=== PATIENT | female | born 1940 | race Caucasian/White ===

== ENCOUNTER 2018-10-26 09:24 | Observation (INO) ==
[2018-10-26] MEDS ORDERED: *HR* OxyCODONE Immed Rel 5 MG TABLET PO STA (09:36)
[2018-10-26] MEDS ORDERED: 0.9 % Sodium Chloride 500 ML IVC ONE (09:36)
[2018-10-26] MEDS ORDERED: *HR* FentaNYL (PF) 100 MCG/2 ML VIAL IVP ONE (09:36)
--- NOTE | 2018-10-26 09:39 | Emergency Department Note ---
Disposition Clinical Impression: Frequent falls, At risk for inadequate pain control Lumbar transverse process fracture Qualifiers: Encounter type: initial encounter Fracture type: closed Qualified Code(s): S32.009A - Unspecified fracture of unspecified lumbar vertebra, initial encounter for closed fracture Disposition: Admitted As Inpatient Condition: Good General Adult HPI - General Chief complaint: ED Fall Stated complaint: fall Time Seen by Provider: 10/26/18 09:27 Source: patient Mode of arrival: ambulatory Limitations: no limitations Nursing Notes Reviewed: Yes Vital Signs Reviewed: Yes - History of Present Illness HPI Narrative: Patient presents to emergency department today after fall. She was on her walker when she lost her balance and fell backwards onto her butt. She is complaining of left pelvis to the lower back as well as the lumbar and thoracic spine. She was evaluated by me last week for muscle spasms had significant relief. Family states that she has had another fall yesterday which she did not seem to have significant pain from. Patient does have a history of osteoporosis and has required kyphoplasty's in the past. At this time it is concerning whether she is safe at home given her frequent falls. Blood work CT scan imaging will be performed. Pain Scale: 10 - Related Data Home Medications Medication Instructions Recorded Confirmed RX: Calcium Carbonate [Calcium] 500 mg PO DAILY 02/18/17 10/26/18 RX: Cholecalciferol (D-3) [Vitamin 1,000 unit PO DAILY 02/18/17 10/26/18 D] RX: Furosemide [Lasix] 20 mg PO DAILY 02/18/17 10/26/18 RX: LORazepam [Ativan] 0.5 mg PO TID PRN 02/18/17 10/26/18 RX: Levothyroxine [Synthroid] 100 mcg PO DAILY 02/18/17 10/26/18 RX: Lidocaine Patch [Lidoderm 5% 1 each TP DAILY 02/18/17 10/26/18 patch] RX: Lisinopril/Hydrochlorothiazide 1 tab PO DAILY 02/18/17 10/26/18 [Zestoretic 20-12.5 mg Tablet] RX: Montelukast [Singulair] 10 mg PO DAILY 02/18/17 10/26/18 RX: Multivitamin [Multi-Day 1 tab PO DAILY 02/18/17 10/26/18 Vitamins] RX: OxyCODONE Immed Rel 10 mg PO Q6H PRN 02/18/17 10/26/18 [Roxicodone 10 MG] RX: Simvastatin [Zocor] 40 mg PO HS 02/18/17 10/26/18 RX: Alendronate Sodium 70 mg PO QWEEK 10/26/18 10/26/18 Previous Rx's Medication Instructions Recorded Orphenadrine [Norflex] 100 mg PO Q12HR PRN #20 tablet.er 10/20/18 Allergies Allergy/AdvReac Type Severity Reaction Status Date / Time cephalexin [From Keflet] Allergy Hives Verified 06/11/18 13:24 All systems ED: reviewed and negative except as stated. Review of Systems: As Per HPI Constitutional: Reports: weakness (generalized). Denies: fever, chills ENT ED: Denies: congestion Cardiovascular: Denies: chest pain Respiratory: Denies: cough, dyspnea Gastrointestinal: Denies: abdominal pain, nausea Genitourinary: Denies: urgency, dysuria Musculoskeletal: Reports: back pain, arthralgia (left hip pain) Integumentary: Denies: rash, abrasion Neurological: Denies: headache Endocrine: Reports: fatigue Past Medical History - Past Medical History Medical history: Reports: hyperlipidemia, hypertension, osteoporosis, other Surgical history: Reports: appendectomy, cholecystectomy, orthopedic, other (Ky phoplasty 2009; Kyphoplasty T9 on 02/18/2017) Psychiatric history: Reports: no psych history - Social History Smoking Status: Former smoker Smokeless Tobacco Status: No Alcohol use: Reports: none Drug use: Reports: none Physical Exam General: Mild distress secondary to pain Head: Normocephalic Atraumatic Eyes: PERRL, EOMI ENT: Airway patent, no stridor Neck: supple Chest: Lungs clear to auscultation bilateral Cardiac: Regular rhythm Abdomen: soft, nontender, nondistended; no guarding, rebound, or tenderness to percussion Musculoskeletal: Tenderness to palpation throughout the lower thoracic as well as lumbar spine. Tenderness at the left hip closer to the SI joint. Skin: No rash, normal skin tone Neuro: Alert and Oriented to person, place, and time; No focal deficit, CN 2-12 symmetric and intact. 5 out of 5 strength the upper lower extremities with sensation intact generalized weakness throughout but is able to lift legs off the bed. - General General appearance: alert Course - Reevaluation(s) Reevaluation #1: Patient unable to inability to go to the bathroom. Patient will require Benoit placement and admission for pain control and difficulty with ambulation given the transverse process fractures. I did discuss case with Dr. Ansari, orthopedic spine. No significant recommendations. If patient does have difficulty she may require a brace. Pain control and supportive measures. - Consultations Consultation #1: Discussed with hospitalist. Requests official orthopedic spine consult. I did go ahead and place this in the computer. Patient be admitted for pain control, increasing falls, transverse process fractures. Vital Signs Temperature 98.5 F 10/26/18 09:29 Pulse Rate 84 10/26/18 09:29 Respiratory Rate 17 10/26/18 09:29 Blood Pressure 141/61 10/26/18 09:29 O2 Sat by Pulse Oximetry 96 10/26/18 09:29 Temperature 98.6 F 10/26/18 15:27 Pulse Rate 75 10/26/18 15:27 Respiratory Rate 16 10/26/18 15:27 Blood Pressure 141/73 10/26/18 15:27 O2 Sat by Pulse Oximetry 94 10/26/18 15:27 Oxygen Delivery Oxygen Delivery Room Air Medical Decision Making - Medical Records Medical records reviewed: Yes I reviewed the patient's medical records. - Lab Data Lab results reviewed: Yes I reviewed the patient's lab results. Result diagrams: 10/26/18 09:38 10/26/18 09:38 Lab Results 10/26/18 10/26/18 10/26/18 Range/Units 09:38 09:38 11:50 WBC 12.0 H (4.3-11.1) K/mcL RBC 4.54 (3.82-4.97) M/mcL Hgb 14.3 (11.5-15.4) g/dL Hct 43.5 (35.3-44.9) % MCV 95.8 (83.0-100.0) fL MCH 31.5 (28.0-33.3) pg MCHC 32.9 (31.6-35.5) g/dL RDW 12.7 (11.5-14.5) % Plt Count 358 (140-400) K/mcL MPV 9.4 (9.4-12.4) fL Immature Gran % 0.3 (0-4) % Seg Neutrophils % 87.5 % Lymphocytes % 6.1 % Monocytes % 5.4 % Eosinophils % 0.4 % Basophils % 0.3 % Neutrophils # 10.5 H (1.6-8.9) K/mcL Lymphocytes # 0.7 (0.6-4.6) K/mcL Monocytes # 0.7 (0.0-1.3) K/mcL Eosinophils # 0.1 (0.0-0.6) K/mcL Basophils # 0.0 (0.0-0.2) K/mcL Sodium 135 L (136-145) mEq/L Potassium 3.6 (3.5-5.1) mEq/L Chloride 98 (98-107) mEq/L Carbon Dioxide 26 (23-29) mEq/L BUN 7 L (8-23) mg/dL Creatinine 0.58 L (0.60-1.20) mg/dL Est GFR ( Amer) > 60 (> 60) Est GFR (Non-Af Amer) > 60 (> 60) BUN/Creatinine Ratio 12 (6-26) Glucose 118 H (70-105) mg/dL Calculated Osmolality 279 L (280-300) Calcium 9.4 (8.6-10.3) mg/dL Total Bilirubin 0.7 (0.3-1.0) mg/dL AST 23 (13-39) Units/L ALT 15 (7-52) Units/L Alkaline Phosphatase 62 (34-104) Units/L Creatine Kinase 218 (30-223) Units/L Troponin I < 0.03 (< 0.04) ng/mL Serum Total Protein 6.8 (6.4-8.9) g/dL Albumin 4.1 (3.5-5.7) g/dL Globulin 2.7 (2.4-3.5) g/dL Albumin/Globulin Ratio 1.5 (1.1-2.2) Urine Color Yellow (Yellow) Urine Clarity Clear (Clear) Urine pH 7.0 (5.0-8.0) pH Units Ur Specific [place] 1.012 (1.010-1.025) Urine Protein Negative (Neg-Trace) mg/dL Urine Glucose (UA) Normal (Normal) mg/dL Urine Ketones 40 H (Negative) mg/dL Urine Blood Large H (Negative) Urine Nitrite Negative (Negative) Urine Bilirubin Negative (Negative) Urine Urobilinogen Normal (Normal) mg/dL Ur Leukocyte Esterase Negative (Negative) Urine Microscopic RBC 5-15 H (0-3) per hpf Urine Microscopic WBC 0-3 (0-3) per hpf Ur Squamous Epith Cells None Seen (None-Few) per lpf Urine Bacteria None Seen (None-Few) per hpf Hyaline Casts None Seen (None-Few) per lpf Ur Culture Indicated? NO (NO) - Radiology Data Radiology results reviewed: Yes I reviewed the patient's radiology results.
[2018-10-26 10:01] LABS: Basophils % 0.3 %; Eosinophils # 0.1 K/mcL (0.0-0.6); Eosinophils % 0.4 %; Hematocrit 43.5 % (35.3-44.9); Hemoglobin 14.3 g/dL (11.5-15.4); Immature Granulocytes % 0.3 % (0-4); Lymphocytes # 0.7 K/mcL (0.6-4.6); Lymphocytes % 6.1 %; Mean Corpuscular HGB Conc 32.9 g/dL (31.6-35.5); Mean Corpuscular Hemoglobin 31.5 pg (28.0-33.3); Mean Corpuscular Volume 95.8 fL (83.0-100.0); Mean Platelet Volume 9.4 fL (9.4-12.4); Monocytes # 0.7 K/mcL (0.0-1.3); Monocytes % 5.4 %; Neutrophils # 10.5 K/mcL (1.6-8.9); Platelet Count 358 K/mcL (140-400); Red Blood Count 4.54 M/mcL (3.82-4.97); Red Cell Distribution Width 12.7 % (11.5-14.5); Segmented Neutrophils % 87.5 %
[2018-10-26 10:21] LABS: Troponin I < 0.03 ng/mL (< 0.04)
[2018-10-26 10:24] LABS: Alanine Aminotransferase 15 Units/L (7-52); Albumin 4.1 g/dL (3.5-5.7); Albumin/Globulin Ratio 1.5 (1.1-2.2); Alkaline Phosphatase 62 Units/L (34-104); Aspartate Amino Transferase 23 Units/L (13-39); BUN/Creatinine Ratio 12 (6-26); Bilirubin,Total 0.7 mg/dL (0.3-1.0); Blood Urea Nitrogen 7 mg/dL (8-23); Calcium 9.4 mg/dL (8.6-10.3); Carbon Dioxide 26 mEq/L (23-29); Chloride 98 mEq/L (98-107); Creatine Kinase 218 Units/L (30-223); Globulin 2.7 g/dL (2.4-3.5); Glucose 118 mg/dL (70-105); Osmolality,Calculated 279 (280-300); Potassium 3.6 mEq/L (3.5-5.1); Sodium 135 mEq/L (136-145); Total Protein 6.8 g/dL (6.4-8.9); eGFR For Non-African Americans > 60 (> 60)
[2018-10-26 12:09] LABS: Bilirubin,Urine Negative (Negative); Blood,Urine Large (Negative); Clarity,Urine Clear (Clear); Color,Urine Yellow (Yellow); Glucose,Urine (UA) Normal (Normal); Ketones,Urine 40 mg/dL (Negative); Leukocyte Esterase,Urine Negative (Negative); Nitrite,Urine Negative (Negative); Protein,Urine Negative (Neg-Trace); Specific Gravity,Urine 1.012 (1.010-1.025); Urobilinogen,Urine Normal (Normal)
[2018-10-26 12:13] LABS: Bacteria,Urine None Seen per hpf (None-Few); Hyaline Casts,Urine None Seen per lpf (None-Few); Squamous Epithelial Cell,Urine None Seen per lpf (None-Few); WBC,Urine 0-3 per hpf (0-3)
[2018-10-26] MEDS ORDERED: *HR* OxyCODONE Immed Rel 5 MG TABLET PO PRN ×2 (14:11→16:18)
[2018-10-26] MEDS ORDERED: *HR* LORazepam 0.5 MG TABLET PO PRN (14:11)
[2018-10-26] MEDS ORDERED: Naloxone 0.4 MG/ML INJ IVP PRN (14:14)
--- NOTE | 2018-10-26 15:17 | Internal Med History&Physical ---
Date of Encounter: 10/26/18 Time of Encounter: 15:16 Internal Medicine - H&P: HPI Chief complaint: Fall Admitted From: Home Plans for Post Hospital Care: Transfer Inp Rehab Fac History of present illness: Ms. Dyer is a 78 year old female with medical history of hypothyroidism, osteoporosis, hypertension and asthma. History of recurrent falls with prior kyphoplasty with presented to this facility following a mechanical fall. Patient reports having feeling wobbly on her feet early this morning around [address] to the bathroom, she subsequently fell and on her hip and back, and remained on the floor until her daughter came in and called the squad 3.5 to 4 hrs later. She denies any chest pain or palpitations or dizziness preceding the fall. She has no fever or chills, no cough, SOB, nausea, vomiting, confusion. She reports similar fall sometime last week, after which she presented to the ER and was treated for muscle spasm. Due to the intensity of the pain, she has been unable to pass urine, she had a Benoit catheter placed in the ER with 800cc of urine output. She denies focal weakness, speech deficits, or facial paralysis, but reports she has been having progressive weakness of her legs and arms prior to and preceding her fall. She is on multiple sedating medications including Norflex, Oxycodone, Lorazepam and also has Osteopenia with hx of multipel falls Work up in ER showed mild leukocytosis , Chem with mild hyponatremia, LFT unremarkable, Trops negative, UA is clean Lumbar CT showed Acute left L1, L2 and L3 transverse process fractures with mild displacement, generalized osteopenia with several vertebral bodies demonstrating decrease height as detailed above but showing no change from prior MRI [id number]. T10 and T11 vertebral body cement augmentation noted. No acute fracture of the cervical or thoracic spine She will be placed on observation for pain control. Spine surgery has been consulted by ER team Past Med Surg Social Fam HX - Past Medical History Medical history: hyperlipidemia, hypertension, osteoporosis, other Additional medical history: anemia. hypothyroidism. vertebral compression fracture. osteopenia Psychiatric history: no psych history - Past Surgical History Surgical History: appendectomy, cholecystectomy, orthopedic, other (Kyphoplasty 2009; Kyphoplasty T9 on 02/18/2017) Additional surgical history: kyphoplasty x2 - Social History Smoking Status: Former smoker Smokeless Tobacco Status: No Alcohol use: none Drug use: none - Family History Father Adopted: No Living Status: Hx Family Cancer: Yes Mother Living Status: Hx Family Neurologic Disorders: Yes (dementia) Internal Medicine - H&P: Meds Calcium Carbonate [Calcium] 500 mg PO DAILY 02/18/17 [History] Cholecalciferol (D-3) [Vitamin D] 1,000 unit PO DAILY 02/18/17 [History] Furosemide [Lasix] 20 mg PO DAILY 02/18/17 [History] LORazepam [Ativan] 0.5 mg PO TID PRN 02/18/17 [History] Levothyroxine [Synthroid] 100 mcg PO DAILY 02/18/17 [History] Lidocaine Patch [Lidoderm 5% patch] 1 each TP DAILY 02/18/17 [History] Lisinopril/Hydrochlorothiazide [Zestoretic 20-12.5 mg Tablet] 1 tab PO DAILY 02/18/17 [History] Montelukast [Singulair] 10 mg PO DAILY 02/18/17 [History] Multivitamin [Multi-Day Vitamins] 1 tab PO DAILY 02/18/17 [History] OxyCODONE Immed Rel [Roxicodone 10 MG] 10 mg PO Q6H PRN 02/18/17 [History] Simvastatin [Zocor] 40 mg PO HS 02/18/17 [History] Orphenadrine [Norflex] 100 mg PO Q12HR PRN #20 tablet.er 10/20/18 [Rx] Alendronate Sodium 70 mg PO QWEEK 10/26/18 [History] Allergy/AdvReac Type Severity Reaction Status Date / Time cephalexin [From [facility]] Allergy Hives Verified 06/11/18 13:24 All Systems PM: A 10-system review of systems was performed and is negative for pertinent fi ndings except as documented above in the HPI. - Constitutional Constitutional: as per HPI - EENT Eyes: as per HPI Ears: as per HPI Nose, mouth and throat: as per HPI - Cardiovascular Cardiovascular ROS IM: as per HPI - Respiratory Respiratory: as per HPI - Gastrointestinal Gastrointestinal: as per HPI - Genitourinary Genitourinary: as per HPI - Musculoskeletal Musculoskeletal ROS IM: as per HPI - Integumentary Integumentary IM: as per HPI - Neurological Neurological ROS: as per HPI - Hematologic/Lymphatic Hematologic/Lymphatic: as per HPI - Constitutional Vitals: Temp Pulse Resp BP Pulse Ox 98.5 F 84 17 125/65 96 10/26/18 09:29 10/26/18 09:29 10/26/18 14:27 10/26/18 14:27 10/26/18 09:29 Exam: VSS Gen: In moderate painful distress, flushed HEENT: Moist oral mucosa, not pale, not cyanotic Chest: CTAB Heart: S1, S2, systolic murmur, no gallops/rubs Abdomen: Soft, not tender, no palpably enlarged organs Extremities: No edema, mild global upper and lower extremity weakness, power 4/5 . : Benoit with clear urine neuro: AAOX3, no focal deficits. Speech is normal, no facial paralysis Internal Med - H&P Results - Labs CBC & Chem 7: 10/26/18 09:38 10/26/18 09:38 Labs: Short CBC 10/26/18 Range/Units 09:38 WBC 12.0 H (4.3-11.1) K/mcL Hgb 14.3 (11.5-15.4) g/dL Hct 43.5 (35.3-44.9) % Plt Count 358 (140-400) K/mcL Neutrophils # 10.5 H (1.6-8.9) K/mcL BMP 10/26/18 09:38 Sodium 135 L Potassium 3.6 Chloride 98 Carbon Dioxide 26 BUN 7 L Creatinine 0.58 L Glucose 118 H Calcium 9.4 Cardiac Enzymes 10/26/18 Range/Units 09:38 Troponin I < 0.03 (< 0.04) ng/mL Liver Function 10/26/18 Range/Units 09:38 Total Bilirubin 0.7 (0.3-1.0) mg/dL AST 23 (13-39) Units/L ALT 15 (7-52) Units/L Alkaline Phosphatase 62 (34-104) Units/L Albumin 4.1 (3.5-5.7) g/dL Urine 10/26/18 Range/Units 11:50 Urine Color Yellow (Yellow) Urine Clarity Clear (Clear) Urine pH 7.0 (5.0-8.0) pH Units Ur Specific [place] 1.012 (1.010-1.025) Urine Protein Negative (Neg-Trace) mg/dL Urine Glucose (UA) Normal (Normal) mg/dL - Impressions ITS Impressions Cervical Spine CT 10/26/18 09:34 IMPRESSION: 1. No evidence for acute fracture of the cervical or thoracic spine. 2. Acute left L1, L2 and L3 transverse process fractures with mild displacement. 3. Generalized osteopenia with several vertebral bodies demonstrating decrease height as detailed above but showing no change from prior MRI of 2017. T10 and T11 vertebral body cement augmentation noted. D/ / Gustavo Galeano MD / Gustavo Galeano MD Interpreting Provider: Gustavo Galeano MD Head CT 10/26/18 09:34 IMPRESSION: No acute intracranial abnormality. Mild chronic small vessel ischemic changes. D/ / 10/26/2018 11:24:15 Kacy Gaines MD / [email or web address] Interpreting Provider: Kacy Gaines MD Lumbar Spine CT 10/26/18 09:34 IMPRESSION: 1. No evidence for acute fracture of the cervical or thoracic spine. 2. Acute left L1, L2 and L3 transverse process fractures with mild displacement. 3. Generalized osteopenia with several vertebral bodies demonstrating decrease height as detailed above but showing no change from prior MRI of 2017. T10 and T11 vertebral body cement augmentation noted. D/ / Gustavo Galeano MD / Gustavo Galeano MD Interpreting Provider: Gustavo Galeano MD Pelvis CT 10/26/18 09:34 IMPRESSION: No acute abnormalities. If there is persistent clinical concern for fracture or difficulty weight-bearing consider MRI evaluation. Mild degenerative changes to both hips and both SI joints. Diffuse bone demineralization. Colonic diverticulosis. Partially imaged ventral abdominal wall hernia containing both fat and small bowel loops. No findings for incarceration or strangulation. D/ / 10/26/2018 11:29:33 Yoseph Sabillon MD / mahesh Interpreting Provider: Yoseph Sabillon MD Thoracic Spine CT 10/26/18 09:34 IMPRESSION: 1. No evidence for acute fracture of the cervical or thoracic spine. 2. Acute left L1, L2 and L3 transverse process fractures with mild displacement. 3. Generalized osteopenia with several vertebral bodies demonstrating decrease height as detailed above but showing no change from prior MRI of 2017. T10 and T11 vertebral body cement augmentation noted. D/ / Gustavo Galeano MD / Gustavo Galeano MD Interpreting Provider: Gustavo Galeano MD - Assessment and plan (1) Hypertension Current Visit: Yes Status: Chronic Assessment and plan: continue home meds Qualifiers: Hypertension type: essential hypertension Qualified Code(s): I10 - Es sential (primary) hypertension (2) Asthma Current Visit: Yes Status: Chronic Assessment and plan: not in exacerbation continue home meds Qualifiers: Asthma severity: mild Asthma persistence: unspecified Asthma complication type: uncomplicated Qualified Code(s): J45.909 - Unspecified asthma, uncomplicated (3) Frequent falls Current Visit: Yes Status: Acute Assessment and plan: PT eval (4) Lumbar transverse process fracture Current Visit: Yes Status: Acute Assessment and plan: Spine surgery consulted and called by ER pain control-lidocaine patch, tylenol for mild pain, oxycodone for severe pain, bowel regimen PTOT eval keep Benoit catheter for now patient may require braces fall precautions She reports preferring to go to [facility] if she requires surgery Qualifiers: Encounter type: initial encounter Fracture type: closed Qualified Code(s): S32.009A - Unspecified fracture of unspecified lumbar vertebra, initial encounter for closed fracture (5) Osteopenia Current Visit: Yes Status: Chronic Assessment and plan: continue home meds Qualifiers: Osteopenia location: unspecified Qualified Code(s): M85.80 - Other specified disorders of bone density and structure, unspecified site - Time Spent With Patient Total time spent is greater than 50% in coordination of care (as documented) at patient's floor/unit and/or counseling patient:
[2018-10-26] MEDS: Orphenadrine 100 MG TABLET.ER PO PRN (16:22)
[2018-10-26] MEDS: *HR* OxyCODONE Immed Rel 5 MG TABLET PO PRN (21:34)
[2018-10-27] MEDS: *HR* OxyCODONE Immed Rel 5 MG TABLET PO PRN ×4 (04:22→23:24)
[2018-10-27] MEDS: *HR* Enoxaparin 40 MG/0.4 ML SYRINGE SQ SCH (06:03)
[2018-10-27] MEDS: Orphenadrine 100 MG TABLET.ER PO PRN ×2 (06:04→19:37)
[2018-10-27 06:22] LABS: Basophils # 0.1 K/mcL (0.0-0.2); Basophils % 0.6 %; Eosinophils # 0.1 K/mcL (0.0-0.6); Eosinophils % 0.9 %; Hematocrit 38.6 % (35.3-44.9); Hemoglobin 12.9 g/dL (11.5-15.4); Immature Granulocytes % 0.6 % (0-4); Lymphocytes # 1.1 K/mcL (0.6-4.6); Lymphocytes % 11.3 %; Mean Corpuscular HGB Conc 33.4 g/dL (31.6-35.5); Mean Corpuscular Hemoglobin 31.8 pg (28.0-33.3); Mean Corpuscular Volume 95.1 fL (83.0-100.0); Mean Platelet Volume 9.5 fL (9.4-12.4); Monocytes # 0.7 K/mcL (0.0-1.3); Monocytes % 7.8 %; Neutrophils # 7.4 K/mcL (1.6-8.9); Platelet Count 348 K/mcL (140-400); Red Blood Count 4.06 M/mcL (3.82-4.97); Red Cell Distribution Width 12.8 % (11.5-14.5); Segmented Neutrophils % 78.8 %
[2018-10-27 06:43] LABS: BUN/Creatinine Ratio 14 (6-26); Blood Urea Nitrogen 7 mg/dL (8-23); Calcium 8.7 mg/dL (8.6-10.3); Carbon Dioxide 24 mEq/L (23-29); Chloride 103 mEq/L (98-107); Glucose 98 mg/dL (70-105); Osmolality,Calculated 280 (280-300); Potassium 3.2 mEq/L (3.5-5.1); Sodium 136 mEq/L (136-145); eGFR For Non-African Americans > 60 (> 60)
[2018-10-27] MEDS: Lisinopril-HCTZ 20-12.5mg TABLET PO SCH (08:40)
[2018-10-27] MEDS: Multivit/Ca/Min/Fe/FA 1 TAB TABLET PO SCH (08:40)
[2018-10-27] MEDS: Furosemide 20 MG TABLET PO SCH (08:40)
[2018-10-27] MEDS: Cholecalciferol (D-3) 1,000 UNIT TABLET PO SCH (08:40)
[2018-10-27] MEDS ORDERED: Ketorolac 30 MG/ML VIAL IVP ONE (11:14)
--- NOTE | 2018-10-27 19:09 | Internal Med Progress Note ---
Hospitalist Progress Note - Encounter Date of Encounter: 10/27/18 Time of Encounter: 11:00 - Subjective Interval History: Lumbar CT showed Acute left L1, L2 and L3 transverse process fractures with mild displacement secondary to mechanical fall No surgical intervention per orthopedic employment law specialist; pain control Plans for shelter facility placement on 10/28/18. - Exam Vitals: Temp Pulse Resp BP Pulse Ox 98.6 F 82 16 145/85 91 10/27/18 18:57 10/27/18 18:57 10/27/18 18:57 10/27/18 18:57 10/27/18 18:57 Exam: Gen.: Nonacute distress, alert and oriented 3 ENT: Mucosal membranes moist Respiratory: Lungs are clear to auscultation bilaterally without any wheezing rhonchi or rales Cardiovascular: Normal S1 and S2 regular rate rhythm no murmurs rubs or gallops Abdomen: Soft, nontender and nondistended with positive bowel sounds Extremities: No lower extremity edema Skin: Normal color - Assessment and Plan (1) Lumbar transverse process fracture Current Visit: Yes Status: Acute Assessment and Plan: Lumbar CT showed Acute left L1, L2 and L3 transverse process fractures with mild displacement secondary to mechanical fall No surgical intervention per orthopedic employment law specialist; pain control Plans for shelter facility placement on 10/28/18. (2) Frequent falls Current Visit: Yes Status: Acute Assessment and Plan: Plans for shelter facility placement as above (3) Osteopenia Current Visit: Yes Status: Chronic Assessment and Plan: continue home meds (4) Hypertension Current Visit: Yes Status: Chronic Assessment and Plan: continue home meds (5) Asthma Current Visit: Yes Status: Chronic Assessment and Plan: not in exacerbation continue home meds DVT Prophylaxis: Lovenox subcutaneous - Time Spent with Patient Total time spent is greater than 50% in coordination of care (as documented) at patient's floor/unit and/or counseling patient: Internal Medicine: Result - Labs CBC & Chem 7: 10/27/18 05:46 10/27/18 05:46 Labs: Short CBC 10/27/18 Range/Units 05:46 WBC 9.4 (4.3-11.1) K/mcL Hgb 12.9 (11.5-15.4) g/dL Hct 38.6 (35.3-44.9) % Plt Count 348 (140-400) K/mcL Neutrophils # 7.4 (1.6-8.9) K/mcL BMP 10/27/18 05:46 Sodium 136 Potassium 3.2 L Chloride 103 Carbon Dioxide 24 BUN 7 L Creatinine 0.50 L Glucose 98 Calcium 8.7 Consult Discharge Plan - Plan Referrals: Dae Rasheed Jr, MD [Primary Care Provider] - (1) Lumbar transverse process fracture Qualifiers: Encounter type: initial encounter Fracture type: closed Qualified Code(s): S32.009A - Unspecified fracture of unspecified lumbar vertebra, initial encounter for closed fracture (3) Osteopenia Qualifiers: Osteopenia location: unspecified Qualified Code(s): M85.80 - Other specified disorders of bone density and structure, unspecified site (4) Hypertension Qualifiers: Hypertension type: essential hypertension Qualified Code(s): I10 - Essential (primary) hypertension (5) Asthma Qualifiers: Asthma severity: mild Asthma persistence: unspecified Asthma complication type: uncomplicated Qualified Code(s): J45.909 - Unspecified asthma, uncomplicated
[2018-10-28] MEDS: *HR* OxyCODONE Immed Rel 5 MG TABLET PO PRN ×3 (05:38→20:17)
[2018-10-28] MEDS: *HR* Enoxaparin 40 MG/0.4 ML SYRINGE SQ SCH (05:45)
[2018-10-28] MEDS: Lisinopril-HCTZ 20-12.5mg TABLET PO SCH (09:37)
[2018-10-28] MEDS: Furosemide 20 MG TABLET PO SCH (09:37)
[2018-10-28] MEDS: Multivit/Ca/Min/Fe/FA 1 TAB TABLET PO SCH (09:37)
[2018-10-28] MEDS: Orphenadrine 100 MG TABLET.ER PO PRN (09:37)
[2018-10-28] MEDS: Cholecalciferol (D-3) 1,000 UNIT TABLET PO SCH (09:37)
--- NOTE | 2018-10-28 14:16 | Physician Discharge Referral ---
ExtendedCare Referral Info Institutional Level of Care: Skilled - Diagnosis (1) Lumbar transverse process fracture Status: Acute (2) Frequent falls Status: Acute (3) Osteopenia Status: Chronic (4) Hypertension Status: Chronic (5) Asthma Status: Chronic - Transfer Medications Prescriptions: LORazepam [Ativan] 0.5 mg PO TID PRN 3 Days #9 tablet PRN Reason: Anxiety OxyCODONE Immed Rel [Roxicodone 10 MG] 10 mg PO Q6H PRN 3 Days #12 tablet PRN Reason: Pain Home Medications: Calcium Carbonate [Calcium] 500 mg PO DAILY 02/18/17 [History] Cholecalciferol (D-3) [Vitamin D] 1,000 unit PO DAILY 02/18/17 [History] Furosemide [Lasix] 20 mg PO DAILY 02/18/17 [History] Levothyroxine [Synthroid] 100 mcg PO DAILY 02/18/17 [History] Lidocaine Patch [Lidoderm 5% patch] 1 each TP DAILY 02/18/17 [History] Lisinopril/Hydrochlorothiazide [Zestoretic 20-12.5 mg Tablet] 1 tab PO DAILY 02/18/17 [History] Montelukast [Singulair] 10 mg PO DAILY 02/18/17 [History] Multivitamin [Multi-Day Vitamins] 1 tab PO DAILY 02/18/17 [History] Simvastatin [Zocor] 40 mg PO HS 02/18/17 [History] Orphenadrine [Norflex] 100 mg PO Q12HR PRN #20 tablet.er 10/20/18 [Rx] Alendronate Sodium 70 mg PO QWEEK 10/26/18 [History] LORazepam [Ativan] 0.5 mg PO TID PRN 3 Days #9 tablet 10/28/18 [Rx] OxyCODONE Immed Rel [Roxicodone 10 MG] 10 mg PO Q6H PRN 3 Days #12 tablet 10/28/18 [Rx] Allergies/Adverse Reactions: Allergy/AdvReac Type Severity Reaction Status Date / Time cephalexin [From Keflet] Allergy Hives Verified 06/11/18 13:24 - Respiratory Orders Smoking Cessation: Smoking cessation has been advised. For more information, call the [place] Tobacco Quit Line at 8-778-DAVJ-NOW. CERTIFICATION: I certify that the transfer of the above named patient to an Extended Care Facility is necessary for the continuing treatment of the diagnosis listed. The above information is true and accurate reflection of patient's current condition. Confidential - Redisclosure prohibited without a patient's written consent.
--- NOTE | 2018-10-28 14:16 | Discharge Summary ---
Date of Encounter: 10/28/18 - Discharge Diagnosis (1) Lumbar transverse process fracture Status: Acute Qualifiers: Encounter type: initial encounter Fracture type: closed Qualified Code(s): S32.009A - Unspecified fracture of unspecified lumbar vertebra, initial encounter for closed fracture (2) Frequent falls Status: Acute (3) Osteopenia Status: Chronic Qualifiers: Osteopenia location: unspecified Qualified Code(s): M85.80 - Other specified disorders of bone density and structure, unspecified site (4) Hypertension Status: Chronic Qualifiers: Hypertension type: essential hypertension Qualified Code(s): I10 - Essential (primary) hypertension (5) Asthma Status: Chronic Qualifiers: Asthma severity: mild Asthma persistence: unspecified Asthma complication type: uncomplicated Qualified Code(s): J45.909 - Unspecified asthma, uncomplicated Hospital course: Ms. Dyer is a 78 year old female - Time Spent with Patient Total time spent providing and/or coordinating discharge services: - Discharge Medications Prescriptions: LORazepam [Ativan] 0.5 mg PO TID PRN 3 Days #9 tablet PRN Reason: Anxiety OxyCODONE Immed Rel [Roxicodone 10 MG] 10 mg PO Q6H PRN 3 Days #12 tablet PRN Reason: Pain Home Medications: Calcium Carbonate [Calcium] 500 mg PO DAILY 02/18/17 [History] Cholecalciferol (D-3) [Vitamin D] 1,000 unit PO DAILY 02/18/17 [History] Furosemide [Lasix] 20 mg PO DAILY 02/18/17 [History] Levothyroxine [Synthroid] 100 mcg PO DAILY 02/18/17 [History] Lidocaine Patch [Lidoderm 5% patch] 1 each TP DAILY 02/18/17 [History] Lisinopril/Hydrochlorothiazide [Zestoretic 20-12.5 mg Tablet] 1 tab PO DAILY 02/18/17 [History] Montelukast [Singulair] 10 mg PO DAILY 02/18/17 [History] Multivitamin [Multi-Day Vitamins] 1 tab PO DAILY 02/18/17 [History] Simvastatin [Zocor] 40 mg PO HS 02/18/17 [History] Orphenadrine [Norflex] 100 mg PO Q12HR PRN #20 tablet.er 10/20/18 [Rx] Alendronate Sodium 70 mg PO QWEEK 10/26/18 [History] LORazepam [Ativan] 0.5 mg PO TID PRN 3 Days #9 tablet 10/28/18 [Rx] OxyCODONE Immed Rel [Roxicodone 10 MG] 10 mg PO Q6H PRN 3 Days #12 tablet 10/28/18 [Rx] Allergies/Adverse Reactions: Allergy/AdvReac Type Severity Reaction Status Date / Time cephalexin [From Keflet] Allergy Hives Verified 06/11/18 13:24 Date of admission: 10/26/18 13:37 Primary care physician: Dae Rasheed Jr, MD Consults: 10/26/18 13:35 Consult to Orthopedic Surgery [CONS] Routine Consulting Provider: Phil Ansari Jr Reason for Consult: intractable back pain; transverse process fractures Call Completed: Yes 10/26/18 14:24 Consult to Physical Therapy [CONS] Routine Comment: Evaluate, develop and implement POC Reason for Consult: Lumbar fracture secondary to mechanical fall Does patient have active BEDREST order?: No Is patient medically & hemodynamically stable?: Yes 10/26/18 15:18 Consult to Nutrition [CONS] Routine Comment: Consulting Provider: NUTRITION Reason for Dietary Consult: MST Score Consult to Pastoral Services [CONS] Routine Comment: Consult to Process Improvement Manager [CONS] Routine Reason for SW Consult: D/C planning 10/27/18 11:18 OT [Consult to Occupational Therapy] [CONS] Routine Comment: Evaluate, develop and implement POC Reason for Consult: Discharge planning, eval and treat Does patient have active BEDREST order?: No Is patient medically & hemodynamically stable?: Yes Patient assessed for mobility or mobilized this visit?: Yes - Constitutional Vitals: Temp Pulse Resp BP Pulse Ox 98.3 F 71 16 117/64 93 10/28/18 12:21 10/28/18 12:21 10/28/18 12:21 10/28/18 12:21 10/28/18 12:21 - Patient Status Disposition: Transfer SNF Condition: Good - Discharge Instructions Follow Up With: Bettie Reyes PAC [Physician Facilities Maintenance Engineer] - 11/11/18 10:30 am
[2018-10-28] MEDS: Acetaminophen 325 MG TABLET PO PRN (16:05)
--- NOTE | 2018-10-28 17:30 | Internal Med Progress Note ---
Hospitalist Progress Note - Encounter Date of Encounter: 10/28/18 Time of Encounter: 11:00 - Subjective Interval History: Lumbar CT showed Acute left L1, L2 and L3 transverse process fractures with mild displacement secondary to mechanical fall No surgical intervention per orthopedic master lay out specialist; pain control Plans for [facility] facility placement on 10/28/18, however patient developed low-grade temperature prior to discharge. Will monitor overnight - Exam Vitals: Temp Pulse Resp BP Pulse Ox 100.4 F H 81 15 107/73 93 10/28/18 16:23 10/28/18 16:23 10/28/18 16:23 10/28/18 16:23 10/28/18 16:23 Exam: Gen.: Nonacute distress, alert and oriented 3 ENT: Mucosal membranes moist Respiratory: Lungs are clear to auscultation bilaterally without any wheezing rhonchi or rales Cardiovascular: Normal S1 and S2 regular rate rhythm no murmurs rubs or gallops Abdomen: Soft, nontender and nondistended with positive bowel sounds Extremities: No lower extremity edema Skin: Normal color - Assessment and Plan (1) Low grade fever Current Visit: Yes Status: Acute Assessment and Plan: Patient with a temperature this afternoon 100.4. Patient's leukocytosis resolved on 10/27/18. Will order urinalysis, chest x-ray and CBC Will monitor overnight (2) Lumbar transverse process fracture Current Visit: Yes Status: Acute Assessment and Plan: Lumbar CT showed Acute left L1, L2 and L3 transverse process fractures with mild displacement secondary to mechanical fall No surgical intervention per orthopedic master lay out specialist; pain control Plans for [facility] facility placement. (3) Frequent falls Current Visit: Yes Status: Acute Assessment and Plan: Plans for [facility] facility placement as above (4) Osteopenia Current Visit: Yes Status: Chronic Assessment and Plan: continue home meds (5) Hypertension Current Visit: Yes Status: Chronic Assessment and Plan: continue home meds (6) Asthma Current Visit: Yes Status: Chronic Assessment and Plan: not in exacerbation continue home meds DVT Prophylaxis: Lovenox subcutaneous - Time Spent with Patient Total time spent is greater than 50% in coordination of care (as documented) at patient's floor/unit and/or counseling patient: Internal Medicine: Result - Labs CBC & Chem 7: 10/27/18 05:46 10/27/18 05:46 Consult Discharge Plan - Plan Referrals: Bettie Reyes PAC [Physician Marksmanship Instructor] - 11/11/18 10:30 am Prescriptions: LORazepam [Ativan] 0.5 mg PO TID PRN 3 Days #9 tablet PRN Reason: Anxiety OxyCODONE Immed Rel [Roxicodone 10 MG] 10 mg PO Q6H PRN 3 Days #12 tablet PRN Reason: Pain (2) Lumbar transverse process fracture Qualifiers: Encounter type: initial encounter Fracture type: closed Qualified Code(s): S32.009A - Unspecified fracture of unspecified lumbar vertebra, initial encounter for closed fracture (4) Osteopenia Qualifiers: Osteopenia location: unspecified Qualified Code(s): M85.80 - Other specified disorders of bone density and structure, unspecified site (5) Hypertension Qualifiers: Hypertension type: essential hypertension Qualified Code(s): I10 - Essential (primary) hypertension (6) Asthma Qualifiers: Asthma severity: mild Asthma persistence: unspecified Asthma complication type: uncomplicated Qualified Code(s): J45.909 - Unspecified asthma, uncomplicated
[2018-10-28 17:57] LABS: Basophils % 0.4 %; Eosinophils # 0.1 K/mcL (0.0-0.6); Eosinophils % 0.7 %; Hematocrit 41.9 % (35.3-44.9); Immature Granulocytes % 0.4 % (0-4); Lymphocytes # 1.8 K/mcL (0.6-4.6); Lymphocytes % 17.9 %; Mean Corpuscular HGB Conc 33.4 g/dL (31.6-35.5); Mean Corpuscular Hemoglobin 31.4 pg (28.0-33.3); Mean Corpuscular Volume 93.9 fL (83.0-100.0); Mean Platelet Volume 9.2 fL (9.4-12.4); Monocytes # 0.8 K/mcL (0.0-1.3); Neutrophils # 7.1 K/mcL (1.6-8.9); Platelet Count 394 K/mcL (140-400); Red Blood Count 4.46 M/mcL (3.82-4.97); Red Cell Distribution Width 12.5 % (11.5-14.5); Segmented Neutrophils % 72.6 %
[2018-10-28] MEDS: Ondansetron 4 MG/2 ML VIAL IVP PRN (20:17)
[2018-10-29] MEDS: *HR* OxyCODONE Immed Rel 5 MG TABLET PO PRN ×3 (02:11→15:16)
[2018-10-29] MEDS: *HR* Enoxaparin 40 MG/0.4 ML SYRINGE SQ SCH (05:57)
[2018-10-29 08:49] LABS: Basophils # 0.1 K/mcL (0.0-0.2); Basophils % 0.6 %; Eosinophils # 0.1 K/mcL (0.0-0.6); Eosinophils % 1.2 %; Hematocrit 42.5 % (35.3-44.9); Hemoglobin 14.3 g/dL (11.5-15.4); Immature Granulocytes % 0.5 % (0-4); Lymphocytes # 1.5 K/mcL (0.6-4.6); Lymphocytes % 17.3 %; Mean Corpuscular HGB Conc 33.6 g/dL (31.6-35.5); Mean Corpuscular Hemoglobin 31.5 pg (28.0-33.3); Mean Corpuscular Volume 93.6 fL (83.0-100.0); Mean Platelet Volume 9.3 fL (9.4-12.4); Monocytes # 0.7 K/mcL (0.0-1.3); Monocytes % 8.1 %; Neutrophils # 6.1 K/mcL (1.6-8.9); Platelet Count 391 K/mcL (140-400); Red Blood Count 4.54 M/mcL (3.82-4.97); Red Cell Distribution Width 12.5 % (11.5-14.5); Segmented Neutrophils % 72.3 %
[2018-10-29] MEDS: Lisinopril-HCTZ 20-12.5mg TABLET PO SCH (08:51)
[2018-10-29] MEDS: Furosemide 20 MG TABLET PO SCH (08:51)
[2018-10-29] MEDS: Cholecalciferol (D-3) 1,000 UNIT TABLET PO SCH (08:51)
[2018-10-29] MEDS: Multivit/Ca/Min/Fe/FA 1 TAB TABLET PO SCH (08:51)
[2018-10-29 09:07] LABS: BUN/Creatinine Ratio 16 (6-26); Blood Urea Nitrogen 7 mg/dL (8-23); Calcium 8.8 mg/dL (8.6-10.3); Carbon Dioxide 26 mEq/L (23-29); Chloride 97 mEq/L (98-107); Glucose 117 mg/dL (70-105); Osmolality,Calculated 273 (280-300); Potassium 2.9 mEq/L (3.5-5.1); Sodium 132 mEq/L (136-145); eGFR For Non-African Americans > 60 (> 60)
[2018-10-29 10:01] LABS: Bilirubin,Urine Negative (Negative); Blood,Urine Negative (Negative); Clarity,Urine Cloudy (Clear); Color,Urine Yellow (Yellow); Glucose,Urine (UA) Normal (Normal); Ketones,Urine 40 mg/dL (Negative); Leukocyte Esterase,Urine Large (Negative); Nitrite,Urine Negative (Negative); PH,Urine 6.5 pH Units (5.0-8.0); Protein,Urine Negative (Neg-Trace); Specific Gravity,Urine 1.013 (1.010-1.025); Urobilinogen,Urine Normal (Normal)
[2018-10-29 10:03] LABS: Bacteria,Urine Moderate per hpf (None-Few); Hyaline Casts,Urine None Seen per lpf (None-Few); Squamous Epithelial Cell,Urine Many per lpf (None-Few)
[2018-10-29] MEDS: Acetaminophen 325 MG TABLET PO PRN (12:05)
[2018-10-29 13:02] VITALS: BP 131/79
[2018-10-29] MEDS: Ondansetron 4 MG/2 ML VIAL IVP PRN (13:05)
--- NOTE | 2018-10-29 13:53 | Discharge Summary ---
- NOTES TO OUTPATIENT PROVIDER Notes to Outpatient Provider: none Date of Encounter: 10/29/18 Time of Encounter: 11:00 - Discharge Diagnosis (1) Low grade fever Priority: Secondary Status: Acute Assessment and Plan: Patient with a temperature this afternoon 100.4. Patient's leukocytosis resolved on 10/27/18. Will order urinalysis, chest x-ray and CBC Will monitor overnight (2) Lumbar transverse process fracture Priority: Primary Status: Acute Qualifiers: Encounter type: initial encounter Fracture type: closed Qualified Code(s): S32.009A - Unspecified fracture of unspecified lumbar vertebra, initial encounter for closed fracture (3) Frequent falls Priority: Secondary Status: Acute (4) Osteopenia Priority: Secondary Status: Chronic Qualifiers: Osteopenia location: unspecified Qualified Code(s): M85.80 - Other specif ied disorders of bone density and structure, unspecified site (5) Hypertension Priority: Secondary Status: Chronic Qualifiers: Hypertension type: essential hypertension Qualified Code(s): I10 - Essential (primary) hypertension (6) Asthma Priority: Secondary Status: Chronic Qualifiers: Asthma severity: mild Asthma persistence: unspecified Asthma complication type: uncomplicated Qualified Code(s): J45.909 - Unspecified asthma, uncomplicated Hospital course: Patient is a 78 year old female with past medical history of hypothyroidism, osteoporosis, hypertension and asthma with recurrent falls with prior kyphoplasty with presented to this facility following a mechanical fall. In the ER, Lumbar CT showed Acute left L1, L2 and L3 transverse process fractures with mild displacement, generalized osteopenia with several vertebral bodies demonstrating decrease height as detailed above but showing no change from prior MRI [id number]. T10 and T11 vertebral body cement augmentation noted. No acute fracture of the cervical or thoracic spine. Spine orthopedics recommended conservative medical management without surgical intervention. [facility] - Time Spent with Patient Total time spent providing and/or coordinating discharge services: Less than 30 minutes - Discharge Medications Prescriptions: LORazepam [Ativan] 0.5 mg PO TID PRN 3 Days #9 tablet PRN Reason: Anxiety OxyCODONE Immed Rel [Roxicodone 10 MG] 10 mg PO Q6H PRN 3 Days #12 tablet PRN Reason: Pain Home Medications: Calcium Carbonate [Calcium] 500 mg PO DAILY 02/18/17 [History] Cholecalciferol (D-3) [Vitamin D] 1,000 unit PO DAILY 02/18/17 [History] Furosemide [Lasix] 20 mg PO DAILY 02/18/17 [History] Levothyroxine [Synthroid] 100 mcg PO DAILY 02/18/17 [History] Lidocaine Patch [Lidoderm 5% patch] 1 each TP DAILY 02/18/17 [History] Lisinopril/Hydrochlorothiazide [Zestoretic 20-12.5 mg Tablet] 1 tab PO DAILY 02/18/17 [History] Montelukast [Singulair] 10 mg PO DAILY 02/18/17 [History] Multivitamin [Multi-Day Vitamins] 1 tab PO DAILY 02/18/17 [History] Simvastatin [Zocor] 40 mg PO HS 02/18/17 [History] Orphenadrine [Norflex] 100 mg PO Q12HR PRN #20 tablet.er 10/20/18 [Rx] Alendronate Sodium 70 mg PO QWEEK 10/26/18 [History] LORazepam [Ativan] 0.5 mg PO TID PRN 3 Days #9 tablet 10/28/18 [Rx] OxyCODONE Immed Rel [Roxicodone 10 MG] 10 mg PO Q6H PRN 3 Days #12 tablet 10/28/18 [Rx] Allergies/Adverse Reactions: Allergy/AdvReac Type Severity Reaction Status Date / Time cephalexin [From Kepret] Allergy Hives Verified 06/11/18 13:24 Date of admission: 10/26/18 13:37 Primary care physician: Dae Rasheed Jr, MD Consults: 10/26/18 13:35 Consult to Orthopedic Surgery [CONS] Routine Consulting Provider: Phil Ansari Jr Reason for Consult: intractable back pain; transverse process fractures Call Completed: Yes 10/26/18 14:24 Consult to Physical Therapy [CONS] Routine Comment: Evaluate, develop and implement POC Reason for Consult: Lumbar fracture secondary to mechanical fall Does patient have active BEDREST order?: No Is patient medically & hemodynamically stable?: Yes 10/26/18 15:18 Consult to Nutrition [CONS] Routine Comment: Consulting Provider: NUTRITION Reason for Dietary Consult: MST Score Consult to Pastoral Services [CONS] Routine Comment: Consult to Pearl Peller [CONS] Routine Reason for SW Consult: D/C planning 10/27/18 11:18 OT [Consult to Occupational Therapy] [CONS] Routine Comment: Evaluate, develop and implement POC Reason for Consult: Discharge planning, eval and treat Does patient have active BEDREST order?: No Is patient medically & hemodynamically stable?: Yes Patient assessed for mobility or mobilized this visit?: Yes - Constitutional Vitals: Temp Pulse Resp BP Pulse Ox 98.0 F 72 15 131/79 94 10/29/18 13:01 10/29/18 13:01 10/29/18 13:01 10/29/18 13:01 10/29/18 13:01 Exam: Gen.: Nonacute distress, alert and oriented 3 Skin: Normal color - Patient Status Disposition: Transfer SNF Condition: Good - Discharge Instructions Follow Up With: Bettie Reyes PAC [Physician Medical Management Specialist] - 11/11/18 10:30 am
== END 2018-10-29 15:34 ==
LOC: EMEROOARM 09:24 → 3NENU 09:24 → SUATTDRO 13:37 → 3NENU 14:48
PROVIDERS: ADMIT Internal Medicine; ATTEND Hospitalist